=== PATIENT | female | born 1945 | race Caucasian/White ===

== ENCOUNTER → 2016-05-20 | Outpatient (CLI) | payer OTHER, BC | LOC: MMPC 10:00 | PROVIDERS: ATTEND Orthopaedic Surgery | DX: Z47.89 Encounter for other orthopedic aftercare (principal) ==

== ENCOUNTER → 2016-07-01 | Outpatient (CLI) | payer OTHER, BC ==
--- NOTE | 2016-07-01 10:02 | DI ---
XR KNEE 1 OR 2 VWS,07/01/2016 9:12 AM: Clinical History: Right knee pain Previous Exam: April 06, 2016 Findings: AP and lateral views of the right knee are obtained, and demonstrate postsurgical changes consistent with a right knee hemiarthroplasty of the medial compartment. This is stable when compared with the p rior exam. There is no hardware loosening identified and no fractures. Impression: Stable right knee hemiarthroplasty.
== END ==
LOC: ORTHO 10:15
PROVIDERS: ATTEND Orthopaedic Surgery
DX: M25.561 Pain in right knee (principal); M17.11 Unilateral primary osteoarthritis, right knee; Z98.890 Other specified postprocedural states
CPT/HCPCS: 73560

== ENCOUNTER → 2016-08-03 | Outpatient (CLI) | payer OTHER, BC | LOC: MMPC 09:00 | PROVIDERS: ATTEND Physician Assistant Medical | DX: L30.8 Other specified dermatitis (principal) | CPT/HCPCS: 99212; G0463 ==

== ENCOUNTER → 2016-09-02 | Outpatient (CLI) | payer OTHER, BC | LOC: MMPC 11:11 | PROVIDERS: ATTEND Surgery | DX: K21.0 Gastro-esophageal reflux disease with esophagitis (principal); K22.70 Barrett's esophagus without dysplasia; Z86.010 Personal history of colon polyps | CPT/HCPCS: 99212; G0463 ==

== ENCOUNTER 2016-09-10 07:26 | Day surgery (SDC) | payer OTHER, BC ==
[~2016-09-10 07:26] MED LIST: LIDOCAINE 2% VISCOUS(20 MG/1 ML) - 15 ML UD CUP PO ONE; LIDOCAINE HCL/PF 2% (20 MG/ML) - 5 ML SYRINGE ONE; LIDOCAINE W/ SODIUM BICARB 0.5 ML SYR ONE; Lactated Ringers 1,000 ML PRIMARY IV ONE; MIDAZOLAM 5 MG/1 ML ONE; fentaNYL Inj 100 MCG/2 ML VIAL ONE
[2016-09-10 08:52] VITALS: TEMP 97.4
--- NOTE | 2016-09-10 08:52 | GEN.OPNOTE ---
EGD / Colonoscopy Report Surgery Date: 09/10/16 Preoperative Diagnosis: GERD. History of Wooten's esophagus. Personal history of colon polyps. Postoperative Diagnosis: Same. Procedure: #1 esophagogastroduodenoscopy with biopsy. #2 complete colonoscopy with biopsy and destruction of a small polyp at 25 cm from the anal verge. Surgeon: Joey Ayala MD Anesthesia Provider: Dimas Hoyt CRNA Anesthesia Type: MAC Indications: See preoperative diagnosis. Last endoscopy was in 2011. EGD Findings: Esophagus: [Normal] GE Junction : [Some irregularity without obvious inflammatory changes. One small island of abnormal mucosa in the distal esophagus.] Fundus : [Normal] Body : [A few small polyps.] Prepyloric : [Mild inflammation.] Small Intestine : [Normal] A lubricated flexible upper endoscope was inserted and passed through the esophagus and stomach into the duodenum. The duodenum and duodenal bulb were unremarkable. The pyloric channel was widely patent. There is some mild erythema in the antrum. Biopsies were taken. Hemostasis was assured. The scope was retroflexed. Other than a few small fundic gland polyps the gastric mucosa was otherwise normal. The scope was straightened and withdrawn into the distal esophagus. There is some slight irregularity at the Z line and one small island of mucosa above the Z line probably representing minimal Wooten's change. Multiple biopsies were taken circumferentially. Hemostasis was assured. The scope was withdrawn through the remainder of a normal-appearing esophagus and brought through the hypopharynx under suction completing the procedure. Colonoscopy Findings: Prep : [Excellent] Cecum : [Normal] Ascending : [Normal] Transverse : [Normal] Sigmoid : [Normal with a small polyp at 25 cm biopsied and destroyed] Rectum : [Normal] Digital Rectal Exam : [Normal] A lubricated flexible colonoscope was inserted and passed to the blind end of the cecum. The ileocecal valve and appendiceal orifice were clearly seen. Air was aspirated as the scope was withdrawn. The only abnormality was a small polyp at 25 cm. It was biopsied with cold biopsy forceps and destroyed. Otherwise the colon was free of tumor, neoplastic mass, other polyps, infectious or inflammatory process. The scope was withdrawn completing the procedure. Patient tolerated the procedure well without complication. She was taken to outpatient surgery in stable condition. Follow-up will be in my office on an as-needed basis. Likely will recommend colonoscopy in 5 years time. We'll call the results the biopsies when available.
[2016-09-10 09:03] VITALS: RESP 15
== END 2016-09-10 09:20 | disposition home or self-care (01) ==
LOC: SDSC 07:26
PROVIDERS: ATTEND Surgery
DX: K21.0 Gastro-esophageal reflux disease with esophagitis (principal); K22.70 Barrett's esophagus without dysplasia; Z86.010 Personal history of colon polyps; K63.5 Polyp of colon
CPT/HCPCS: 43239 ×2; 45380 ×2; J2704; J3010; J2001; J2250; J7120

== ENCOUNTER → 2016-09-30 | Outpatient (CLI) | payer OTHER, BC ==
--- NOTE | 2016-09-30 09:35 | DI ---
RIGHT KNEE, 09/30/2016 9:07 AM: Clinical History: Osteoarthritis of the right knee. Status post medial compartment replacement. [facility] exam. Previous Exam: 07/01/2016. AP and lateral views are submitted. The patient is status post medial compartment replacement. The pr osthetic device articulates normally. There is no evidence of loosening of the prosthetic device. Reading: Status post total medial compartment replacement with no interval change. There is no evidence of loo sening of the prosthetic device.
== END ==
LOC: ORTHO 09:23
PROVIDERS: ATTEND Orthopaedic Surgery
DX: M17.11 Unilateral primary osteoarthritis, right knee (principal); Z96.651 Presence of right artificial knee joint; Z98.890 Other specified postprocedural states
CPT/HCPCS: 73560

== ENCOUNTER → 2016-11-17 | Outpatient (CLI) | payer OTHER, BC | LOC: LAB 12:47 | PROVIDERS: ATTEND Obstetrics & Gynecology Gynecology | DX: E53.8 Deficiency of other specified B group vitamins (principal); E03.9 Hypothyroidism, unspecified; E78.5 Hyperlipidemia, unspecified; M81.0 Age-related osteoporosis without current pathological fracture | CPT/HCPCS: 36415; 82607; 82746; 83735 ==

== ENCOUNTER → 2016-12-24 | Outpatient (CLI) | payer OTHER, BC | LOC: LAB 12:02 | PROVIDERS: ATTEND Obstetrics & Gynecology Gynecology | DX: E53.8 Deficiency of other specified B group vitamins (principal) | CPT/HCPCS: 82607; 82746 ==